=== PATIENT | male | born 2000 | race African-American/Black ===

== ENCOUNTER 2022-11-14 07:54 | Emergency (ER) | payer OTHER ==
[2022-11-14] MEDS ORDERED: Ondansetron 4 MG/2 ML SDV IVPUSH ONE (08:20)
[2022-11-14] MEDS ORDERED: Sodium Chloride 0.9% 1,000 ML IV STA (08:20)
[2022-11-14] MEDS ORDERED: Sodium Chloride 0.9% 10 ML Syringe FLUSH PRN (08:20)
[2022-11-14] MEDS ORDERED: HYDROmorphone 1 MG/ML Syringe IVPUSH ONE (08:21)
[2022-11-14] MEDS ORDERED: Ketorolac 30 MG/ML SDV IVPUSH ONE (09:34)
== END 2022-11-14 11:16 | disposition home or self-care (01) ==
LOC: JD.ED 07:54
DX: R51.9 Headache, unspecified (principal); R11.2 Nausea with vomiting, unspecified
CPT/HCPCS: 36415; 70450; 80053; 85025; 96361; 96374; 96375; 99284; J1170; J1885; J2405; J3490; J7030

== ENCOUNTER 2022-11-15 12:38 | Emergency (ER) | payer OTHER ==
[2022-11-15] MEDS ORDERED: Sodium Chloride 0.9% 10 ML Syringe FLUSH PRN (13:12)
[2022-11-15] MEDS ORDERED: Metoclopramide 10 MG/2 ML SDV IVPUSH ONE (13:13)
[2022-11-15] MEDS ORDERED: Ketorolac 30 MG/ML SDV IVPUSH ONE (13:14)
[2022-11-15] MEDS ORDERED: diphenhydrAMINE 50 MG/ML SDV IVPUSH ONE (13:14)
[2022-11-15] MEDS ORDERED: Sodium Chloride 0.9% 1,000 ML IV SCH (13:15)
[2022-11-15 15:00] LABS: ESTIMATED GFR 98 mL/min (>60)
[2022-11-15] MEDS ORDERED: HYDROmorphone 1 MG/ML Syringe IVPUSH ONE (15:04)
== END 2022-11-15 19:00 | disposition home or self-care (01) ==
LOC: JD.ED 12:38
DX: R51.9 Headache, unspecified (principal); R11.2 Nausea with vomiting, unspecified
CPT/HCPCS: 36415; 80053; 83735; 85025; 86140; 96361; 96374; 96375; 99284; J1170; J1200; J1885; J2765; J3490; J7030

== ENCOUNTER 2023-01-13 19:50 | Emergency (ER) | payer OTHER | END 2023-01-13 22:57 | disposition home or self-care (01) | LOC: JD.ED 19:50 | DX: K27.9 Peptic ulcer, site unspecified, unspecified as acute or chronic, without hemorrhage or perforation (principal) | CPT/HCPCS: 36415; 76705; 76705-26; 80053; 83690; 85025; 99284 ==

== ENCOUNTER 2024-12-05 08:42 | Emergency (ER) | payer BC, OTHER ==
[2024-12-05 10:37] LABS: APPEARANCE,URINE CLEAR (Clear); BILIRUBIN,URINE NEGATIVE (Negative); COLOR,URINE YELLOW (Yellow); GLUCOSE,URINE NEGATIVE (Negative); KETONES,URINE NEGATIVE (Negative); LEUKOCYTE ESTERASE,URINE NEGATIVE (Negative); NITRITE,URINE NEGATIVE (Negative); OCCULT BLOOD,URINE NEGATIVE (Negative); PROTEIN,URINE NEGATIVE (Negative); UROBILINOGEN,URINE 0.2 (0.2-1.0)
[2024-12-05 10:43] LABS: BARBITURATE SCREEN,URINE NEGATIVE (CUTOFF=200); BENZODIAZEPINES SCREEN,URINE NEGATIVE (CUTOFF=150); BUPRENORPHINE SCREEN,URINE NEGATIVE (CUTOFF=10); METHADONE SCREEN, URINE NEGATIVE (CUT0FF=200); METHAMPHETAMINES SCREEN, URINE NEGATIVE (CUTOFF=500); OXYCODONE SCREEN,URINE NEGATIVE (CUT0FF=100); THC SCREEN,URINE 20 NG/ML NEGATIVE (CUTOFF=50)
[2024-12-05 10:49] LABS: AMPHETAMINES SCREEN, URINE NEGATIVE (CUTOFF=500)
== END 2024-12-05 11:41 | disposition home or self-care (01) ==
LOC: JD.ED 08:42
DX: M54.50 Low back pain, unspecified (principal); Z86.16 Personal history of COVID-19; X50.1XXA Overexertion from prolonged static or awkward postures, initial encounter
CPT/HCPCS: 72131; 72131-26; 80306; 81003; 99283; 99284